=== PATIENT | male | born 1990 | race Caucasian/White ===

== ENCOUNTER → 2024-04-15 | Outpatient (CLI) | payer OTHER, SELFPAY ==
--- NOTE | 2024-04-15 10:34 | MRI_ITS ---
STUDY: MRI LUMBAR SPINE WITHOUT CONTRAST REASON FOR EXAM: Male, 33 years old. radiculopathy -- lumbar radiculopathy TECHNIQUE: Standardized fat and water weighted pulse sequences were obtained in the sagittal and axial planes. COMPARISON: Lumbar spine x-rays June 07, 2014 FINDINGS: T12-L1: Normal endplates. Normal disc height, hydration and morphology. Normal bilateral facet joints. Normal central canal and bilateral lateral recesses. Normal bilateral intervertebral neural foramina. Normal lumbar lordosis. There is no substantial scoliosis. Normal conus medullaris that terminates at T12-L1 L1-2: Normal endplates. Normal disc height, hydration and morphology. Normal bilateral facet joints. Normal central canal and bilateral lateral recesses. Normal bilateral intervertebral neural foramina. L2-3: Normal endplates. Normal disc height, hydration and morphology. Normal bilateral facet joints. Normal central canal and bilateral lateral recesses. Normal bilateral intervertebral neural foramina. L3-4: Normal endplates. Normal disc height, hydration and morphology. Normal bilateral facet joints. Normal central canal and bilateral lateral recesses. Normal bilateral intervertebral neural foramina. L4-5: Normal endplates. Normal disc height, hydration and morphology Normal bilateral facet joints. Normal central canal and bilateral lateral recesses. Normal bilateral intervertebral neural foramina. L5-S1: Normal endplates. Normal disc height, desiccation and minor annular bulge with tiny central disc extrusion with inferior migration of disc fragment. Normal bilateral facet joints. Normal central canal and bilateral lateral recesses. Mild bilateral neural foraminal encroachment Normal visualized sacral ala. Normal visualized paraspinous soft tissue structures. No significant change since prior exam given inherent differences in imaging modalities MRI/Spine Lumbar (Routine) IMPRESSION: No evidence for acute fracture or other significant bony pathology.. Disc degeneration L5-S1 with minor bulging annulus and tiny central disc extrusion with inferior migration of disc fragment. Normal central canal and mild bilateral neural foraminal encroachment Electronically Signed: Scot Mendoza MD at 16:55 EST ,
== END | disposition home or self-care (01) ==
PROVIDERS: PCP Internal Medicine; Referring Provider Internal Medicine; Visit Provider Internal Medicine
DX: M54.16 Radiculopathy, lumbar region (principal)
CPT/HCPCS: 72148